=== PATIENT | female | born 1985 | race American Indian/Alaskan Native ===

== ENCOUNTER 2019-08-30 16:21 | Emergency (ER) | payer SELFPAY ==
--- NOTE | 2019-08-30 16:34 | Emergency Department Report ---
ED ENT HPI - General Chief complaint: Dental/Oral Stated complaint: INFECTED TOOTH/SWOLLEN NECK/BEHIND EAR Time Seen by Provider: 08/30/19 16:26 Source: patient Mode of arrival: Ambulatory Limitations: No Limitations - History of Present Illness Initial comments: 34 y/o female comes in for 2 weeks of toothache and 2 day history of right side jaw and neck swelling. Plover hot no chill no drainage. Has been taking Tylenol. NKDA. PMH none. Currently on no meds. Does not have a dental appointment yet. MD complaint: tooth pain Onset/Timin -: week(s) Location: tooth # Severity scale (0 -10): 8 Quality: aching Improves with: none Worsens with: eating Context- Dental: history of dental caries Associated Symptoms: gum swelling, toothache. denies: fever, cough - Related Data Previous Rx's Medication Instructions Recorded Last Taken Type Acetaminophen/Codeine [Tylenol #3] 1 tab PO Q6H PRN #20 tab 05/20/15 Unknown Rx Acyclovir [Zovirax Tab] 800 mg PO 5XD #50 tab 05/20/15 Unknown Rx Ibuprofen [Motrin] 800 mg PO Q8H PRN #50 tablet 05/20/15 Unknown Rx Clindamycin [Clindamycin CAP] 300 mg PO Q8H 10 Days #30 cap 08/30/19 Unknown Rx Ibuprofen [Motrin 800 MG tab] 800 mg PO Q8HR PRN 7 Days #21 08/30/19 Unknown Rx tablet Allergies Allergy/AdvReac Type Severity Reaction Status Date / Time No Known Allergies Allergy Unverified 05/20/15 09:51 ED Dental HPI - General Chief complaint: Dental/Oral Stated complaint: INFECTED TOOTH/SWOLLEN NECK/BEHIND EAR Time Seen by Provider: 08/30/19 16:26 Source: patient Mode of arrival: Ambulatory Limitations: No Limitations - Related Data Previous Rx's Medication Instructions Recorded Last Taken Type Acetaminophen/Codeine [Tylenol #3] 1 tab PO Q6H PRN #20 tab 05/20/15 Unknown Rx Acyclovir [Zovirax Tab] 800 mg PO 5XD #50 tab 05/20/15 Unknown Rx Ibuprofen [Motrin] 800 mg PO Q8H PRN #50 tablet 05/20/15 Unknown Rx Clindamycin [Clindamycin CAP] 300 mg PO Q8H 10 Days #30 cap 08/30/19 Unknown Rx Ibuprofen [Motrin 800 MG tab] 800 mg PO Q8HR PRN 7 Days #21 08/30/19 Unknown Rx tablet Allergies Allergy/AdvReac Type Severity Reaction Status Date / Time No Known Allergies Allergy Unverified 05/20/15 09:51 ED Review of Systems ROS: Stated complaint: INFECTED TOOTH/SWOLLEN NECK/BEHIND EAR Other details as noted in HPI Comment: All other systems reviewed and negative ED Past Medical Hx - Past Medical History Previous Medical History?: No - Surgical History Past Surgical History?: No - Social History Smoking Status: Heavy Tobacco Smoker Substance Use Type: Alcohol - Medications Home Medications: Home Medications Medication Instructions Recorded Confirmed Last Taken Type Acetaminophen/Codeine [Tylenol #3] 1 tab PO Q6H PRN #20 tab 05/20/15 Unknown Rx Acyclovir [Zovirax Tab] 800 mg PO 5XD #50 tab 05/20/15 Unknown Rx Ibuprofen [Motrin] 800 mg PO Q8H PRN #50 tablet 05/20/15 Unknown Rx Clindamycin [Clindamycin CAP] 300 mg PO Q8H 10 Days #30 cap 08/30/19 Unknown Rx Ibuprofen [Motrin 800 MG tab] 800 mg PO Q8HR PRN 7 Days #21 08/30/19 Unknown Rx tablet ED Physical Exam - General Limitations: No Limitations General appearance: alert, in no apparent distress - Head Head exam: Present: atraumatic, normocephalic - Eye Eye exam: Present: normal appearance - ENT ENT exam: Present: mucous membranes moist, TM's normal bilaterally, normal external ear exam - Expanded ENT Exam Expanded Teeth exam: Present: dental tenderness #, gingival enlargement Throat exam: Positive: normal inspection - Neurological Exam Neurological exam: Present: alert, oriented X3, normal gait - Psychiatric Psychiatric exam: Present: normal affect, normal mood - Skin Skin exam: Present: warm, dry, intact, normal color. Absent: rash ED Medical Decision Making - Medical Decision Making 34 y/o female comes in for 2 weeks of toothache and 2 day history of right side jaw and neck swelling. Plover hot no chill no drainage. Has been taking Tylenol. NKDA. PMH none. Currently on no meds. Does not have a dental appointment yet. Rx for Clindamycin 300mg tid and Ibuprofen 600mg Critical care attestation.: If time is entered above; I have spent that time in minutes in the direct care of this critically ill patient, excluding procedure time. ED Disposition Clinical Impression: Abscess, dental Disposition: [id number] TO HOME OR SELFCARE Is pt being admited?: No Does the pt Need Aspirin: No Condition: Stable Instructions: Dental Abscess (ED) Prescriptions: Clindamycin [Clindamycin CAP] 300 mg PO Q8H 10 Days #30 cap Ibuprofen [Motrin 800 MG tab] 800 mg PO Q8HR PRN 7 Days #21 tablet PRN Reason: Pain , Severe (7-10) Referrals: [facility] [Outside] - 3-[address] [facility] [Outside] - 3-5 Days
[2019-08-30 16:36] VITALS: BP 124/62
== END 2019-08-30 16:50 | disposition home or self-care (01) ==
LOC: ED 16:21
DX: K04.7 Periapical abscess without sinus (principal); F17.200 Nicotine dependence, unspecified, uncomplicated
CPT/HCPCS: 99281

== ENCOUNTER 2019-10-17 02:55 | Emergency (ER) | payer SELFPAY ==
[2019-10-17 03:12] VITALS: BP 132/82
[2019-10-17] MEDS ORDERED: ACETAMINOPHEN 325 MG TAB PO ONE (04:34)
[2019-10-17] MEDS ORDERED: ACETAMINOPHEN 325 MG TAB ONE (04:35)
--- NOTE | 2019-10-17 05:34 | Emergency Department Report ---
ED ENT HPI - General Chief complaint: Dental/Oral Stated complaint: TOOTHACHE, SORE THROAT Time Seen by Provider: 10/17/19 05:27 Source: patient Mode of arrival: Ambulatory Limitations: No Limitations - History of Present Illness Initial comments: 34-year-old [place] female that has a history of recurrent dental pain reports emergency department complaining of a 2 day acute on chronic history of pain to the right molar region. Pain is with fluids with eating and palpation. She reports no nausea, no vomiting, fever, chills, sweats no chest pain no palpitations no hemoptysis. MD complaint: tooth pain -: Sudden Location: tooth # Severity: moderate Quality: dull Consistency: constant Improves with: none Worsens with: none Context- Dental: history of dental caries, poor dental care Associated Symptoms: toothache. denies: tinnitus, hearing loss, discharge from ear, rhinorrhea - Related Data Previous Rx's Medication Instructions Recorded Last Taken Type Acetaminophen/Codeine [Tylenol #3] 1 tab PO Q6H PRN #20 tab 05/20/15 Unknown Rx Acyclovir [Zovirax Tab] 800 mg PO 5XD #50 tab 05/20/15 Unknown Rx Ibuprofen [Motrin] 800 mg PO Q8H PRN #50 tablet 05/20/15 Unknown Rx Clindamycin [Clindamycin CAP] 300 mg PO Q8H 10 Days #30 cap 08/30/19 Unknown Rx Ibuprofen [Motrin 800 MG tab] 800 mg PO Q8HR PRN 7 Days #21 08/30/19 Unknown Rx tablet Amoxicillin/Potassium Clav 1 each PO BID #20 tablet 10/17/19 Unknown Rx [Augmentin 875-125 Tablet] Chlorhexidine Mouthwash [Peridex] 15 ml MM BID #1 bottle 10/17/19 Unknown Rx Ketorolac [Toradol] 10 mg PO Q6H PRN #15 tablet 10/17/19 Unknown Rx Lidocaine Viscous 2% 5 ml MM Q3H PRN #120 udc 10/17/19 Unknown Rx Allergies Allergy/AdvReac Type Severity Reaction Status Date / Time No Known Allergies Allergy Unverified 05/20/15 09:51 ED Dental HPI - General Chief complaint: Dental/Oral Stated complaint: TOOTHACHE, SORE THROAT Time Seen by Provider: 10/17/19 05:27 Source: patient Mode of arrival: Ambulatory Limitations: No Limitations - Related Data Previous Rx's Medication Instructions Recorded Last Taken Type Acetaminophen/Codeine [Tylenol #3] 1 tab PO Q6H PRN #20 tab 05/20/15 Unknown Rx Acyclovir [Zovirax Tab] 800 mg PO 5XD #50 tab 05/20/15 Unknown Rx Ibuprofen [Motrin] 800 mg PO Q8H PRN #50 tablet 05/20/15 Unknown Rx Clindamycin [Clindamycin CAP] 300 mg PO Q8H 10 Days #30 cap 08/30/19 Unknown Rx Ibuprofen [Motrin 800 MG tab] 800 mg PO Q8HR PRN 7 Days #21 08/30/19 Unknown Rx tablet Amoxicillin/Potassium Clav 1 each PO BID #20 tablet 10/17/19 Unknown Rx [Augmentin 875-125 Tablet] Chlorhexidine Mouthwash [Peridex] 15 ml MM BID #1 bottle 10/17/19 Unknown Rx Ketorolac [Toradol] 10 mg PO Q6H PRN #15 tablet 10/17/19 Unknown Rx Lidocaine Viscous 2% 5 ml MM Q3H PRN #120 udc 10/17/19 Unknown Rx Allergies Allergy/AdvReac Type Severity Reaction Status Date / Time No Known Allergies Allergy Unverified 05/20/15 09:51 ED Review of Systems ROS: Stated complaint: TOOTHACHE, SORE THROAT Other details as noted in HPI Comment: All other systems reviewed and negative ED Past Medical Hx - Past Medical History Previous Medical History?: No - Surgical History Past Surgical History?: No - Social History Smoking Status: Never Smoker Substance Use Type: None - Medications Home Medications: Home Medications Medication Instructions Recorded Confirmed Last Taken Type Acetaminophen/Codeine [Tylenol #3] 1 tab PO Q6H PRN #20 tab 05/20/15 Unknown Rx Acyclovir [Zovirax Tab] 800 mg PO 5XD #50 tab 05/20/15 Unknown Rx Ibuprofen [Motrin] 800 mg PO Q8H PRN #50 tablet 05/20/15 Unknown Rx Clindamycin [Clindamycin CAP] 300 mg PO Q8H 10 Days #30 cap 08/30/19 Unknown Rx Ibuprofen [Motrin 800 MG tab] 800 mg PO Q8HR PRN 7 Days #21 08/30/19 Unknown Rx tablet Amoxicillin/Potassium Clav 1 each PO BID #20 tablet 10/17/19 Unknown Rx [Augmentin 875-125 Tablet] Chlorhexidine Mouthwash [Peridex] 15 ml MM BID #1 bottle 10/17/19 Unknown Rx Ketorolac [Toradol] 10 mg PO Q6H PRN #15 tablet 10/17/19 Unknown Rx Lidocaine Viscous 2% 5 ml MM Q3H PRN #120 udc 10/17/19 Unknown Rx ED Physical Exam - General Limitations: No Limitations General appearance: alert, in no apparent distress - Head Head exam: Present: atraumatic, normocephalic - Eye Eye exam: Present: normal appearance - ENT ENT exam: Present: mucous membranes moist, other (various areas of dental erosion and dental caries noted. There is no erythema to the adjacent lower gingival region. No abscess is present. No no exudate.) - Neck Neck exam: Present: normal inspection, full ROM. Absent: lymphadenopathy - Respiratory Respiratory exam: Present: normal lung sounds bilaterally. Absent: respiratory distress - Cardiovascular Cardiovascular Exam: Present: regular rate, normal rhythm. Absent: systolic murmur, diastolic murmur, rubs, gallop - GI/Abdominal GI/Abdominal exam: Present: soft, normal bowel sounds - Extremities Exam Extremities exam: Present: normal inspection - Back Exam Back exam: Present: normal inspection - Neurological Exam Neurological exam: Present: alert, oriented X3 - Psychiatric Psychiatric exam: Present: normal affect, normal mood - Skin Skin exam: Present: warm, dry, intact, normal color. Absent: rash ED Course Vital Signs 10/17/19 03:09 Temperature 98.4 F Pulse Rate 81 Respiratory 16 Rate Blood Pressure 132/82 O2 Sat by Pulse 98 Oximetry ED Medical Decision Making - Medical Decision Making Patient not immunosuppressed. No e/o tooth fracture, avulsion, or bleeding socket. No e/o RPA, [employer], [place]igs angina, periapical abscess. No e/o gingival hyperplasia or concern for drug reaction. Rx Nsaid. Will start ABX given her recurrent history and mild evidence of infection. Disposition: Discharge home. Discussed return precautions for odontogenic infections and other dental pain emergencies. Will provide dental clinic list. Critical care attestation.: If time is entered above; I have spent that time in minutes in the direct care of this critically ill patient, excluding procedure time. ED Disposition Clinical Impression: Dentalgia, Dental caries Disposition: TO HOME OR SELFCARE Is pt being admited?: No Does the pt Need Aspirin: No Condition: Stable Instructions: Dental Caries (ED), Dental Abscess (ED), Toothache (ED) Prescriptions: Amoxicillin/Potassium Clav [Augmentin 875-125 Tablet] 1 each PO BID #20 tablet Lidocaine Viscous 2% 5 ml MM Q3H PRN #120 udc PRN Reason: Pain, Moderate (4-6) Chlorhexidine Mouthwash [Peridex] 15 ml MM BID #1 bottle Ketorolac [Toradol] 10 mg PO Q6H PRN #15 tablet PRN Reason: Pain Referrals: [facility] [Outside] - 3-5 Days (Please follow up at the dental clinic to)
== END 2019-10-17 05:45 | disposition home or self-care (01) ==
LOC: ED 02:55
DX: K02.9 Dental caries, unspecified (principal); Z79.899 Other long term (current) drug therapy